=== PATIENT | female | born 1960 | race Asian ===

== ENCOUNTER 2022-08-07 09:04 | Day surgery (SDC) | payer OTHER ==
[~2022-08-07] VITALS: Ht 162.6 cm; Wt 59.0 kg
[~2022-08-07 09:04] MED LIST: DexAMETHasone SOD PHOS 10MG/1ML VIAL INJ ONE; GLYCOPYRROLATE 0.2 MG/ML 1ML VIAL ONE; KETOROLAC TROMETH 30 MG/ML 1ML VIAL ONE; LIDOCAINE 2% (LOCAL ANESTH.) PF 5ml SDV ONE; ONDANSETRON HCL 4 MG/2 ML VIAL ONE; PROPOFOL 10 MG/ML 20 ML IV ONE; ceFAZolin 1GM/50ML 100 ML IV ONE
[2022-08-07] MEDS ORDERED: LIDOCAINE 1% HCL (LOCAL ANESTH.) INJ 20ML MDV ONE (10:07)
[2022-08-07] MEDS ORDERED: DexAMETHasone SOD PHOS 4 MG/1ML SDV INJ ONE (10:07)
[2022-08-07] MEDS ORDERED: BUPIVACAINE 0.5% P/F INJ 10 ML VIAL ONE (10:07)
[2022-08-07] MEDS ORDERED: PROPOFOL 10 MG/ML 20 ML IV ONE (10:23)
[2022-08-07 12:17] VITALS: BP 156/90
== END 2022-08-07 12:32 | disposition home or self-care (01) ==
LOC: SUR 09:04
PROVIDERS: ATTEND Podiatrist Foot & Ankle Surgery
DX: M20.11 Hallux valgus (acquired), right foot (principal); M21.611 Bunion of right foot
CPT/HCPCS: 28298; 73620; C1713; C1769; J0690; J1100; J1885; J2001; J2405; J2704; J3490; L3260